=== PATIENT | female | born 1985 | race African-American/Black ===

== ENCOUNTER 2017-04-14 10:55 | Emergency (ER) | payer OTHER ==
[~2017-04-14] VITALS: Ht 154.9 cm; Wt 69.8 kg
[~2017-04-14 10:55] MED LIST: MOBIC15 MG PO; TYLENOL325 MG PO
[2017-04-14 12:03] LABS: URINE BILIRUBIN NEGATIVE (Negative); URINE BLOOD NEGATIVE (Negative); URINE CLARITY CLEAR; URINE COLOR YELLOW; URINE GLUCOSE-RANDOM* NEGATIVE (Negative); URINE KETONES NEGATIVE (Negative); URINE LEUKOCYTES NEGATIVE (Negative); URINE NITRITE NEGATIVE (Negative); URINE PROTEIN (DIPSTICK) NEGATIVE (Negative); URINE SPECIFIC GRAVITY >= 1.030 (1.005-1.035); URINE UROBILINOGEN 0.2 E.U./dl (0.2-1.0)
[2017-04-14 12:03] LABS: HEMATOCRIT 38.8 % (37.0-47.0); HEMOGLOBIN 12.7 gm/dL (12.0-15.0); MCH 25.4 pg (26.0-34.0); MCHC 32.7 g/dL (28.0-37.0); MCV 77.5 fL (80.0-100.0); PLATELET COUNT 297 thou/uL (150-400); RBC 5.01 mil/uL (4.20-5.00); RDW 14.9 % (10.5-14.5); WBC 3.8 thou/uL (4.0-11.0)
[2017-04-14 12:12] LABS: ANION GAP 12 mmol/L (7-16); BUN 6 mg/dL (7-18); CALCIUM 9.2 mg/dL (8.5-10.1); CHLORIDE 104 mmol/L (98-107); CO2 23 mmol/L (21-32); CREATININE 0.9 mg/dL (0.6-1.0); GLUCOSE 112 mg/dL (74-106); SODIUM 139 mmol/L (136-145)
[2017-04-14 12:17] LABS: DIRECT BILIRUBIN < 0.1 mg/dL (<0.1-0.3); LIPASE 150 U/L (73-393); SGOT 121 U/L (15-37); SGPT 144 U/L (30-65); TOTAL BILIRUBIN 0.2 mg/dL (<0.1-1.0); TOTAL PROTEIN 8.6 g/dL (6.4-8.2)
[2017-04-14 13:13] LABS: ABSOLUTE NEUTROPHILS 1.8 thou/uL (1.4-8.2)
[2017-04-14] MEDS ORDERED: ONDANSETRON HCL4 M2 PO (13:29)
== END 2017-04-14 13:45 | disposition home or self-care (01) ==
LOC: ER 10:55
PROVIDERS: Nurse Practitioner
DX: R19.7 Diarrhea, unspecified (principal); R11.2 Nausea with vomiting, unspecified

== ENCOUNTER 2017-08-28 15:47 | Emergency (ER) | payer BC ==
[~2017-08-28] VITALS: Ht 154.9 cm; Wt 70.3 kg
[~2017-08-28 15:47] MED LIST changes: +ONDANSETRON HCL4 M2 PO
[2017-08-28 16:16] LABS: ABSOLUTE NEUTROPHILS 3.8 thou/uL (1.4-8.2); BASOPHILS 0.7 % (0.0-2.0); HEMOGLOBIN 11.9 gm/dL (12.0-15.0); MCH 25.4 pg (26.0-34.0); MCV 77.2 fL (80.0-100.0); MONOCYTES 7.1 % (1.0-8.0); PLATELET COUNT 322 thou/uL (150-400); POLYS 46.2 % (36.0-66.0); RBC 4.66 mil/uL (4.20-5.00); RDW 15.7 % (10.5-14.5); WBC 8.1 thou/uL (4.0-11.0)
[2017-08-28 16:23] LABS: CALCIUM 9.1 mg/dL (8.5-10.1)
[2017-08-28 16:29] LABS: ALBUMIN 3.9 g/dL (3.4-5.0); TOTAL BILIRUBIN 0.2 mg/dL (<0.1-1.0); TOTAL PROTEIN 8.2 g/dL (6.4-8.2)
[2017-08-28 16:30] LABS: URINE BILIRUBIN NEGATIVE (Negative); URINE BLOOD NEGATIVE (Negative); URINE CLARITY CLEAR; URINE COLOR YELLOW; URINE GLUCOSE-RANDOM* NEGATIVE (Negative); URINE KETONES NEGATIVE (Negative); URINE LEUKOCYTES-REFLEX NEGATIVE (Negative); URINE NITRITE-REFLEX NEGATIVE (Negative); URINE PROTEIN (DIPSTICK) NEGATIVE (Negative); URINE SPECIFIC GRAVITY >= 1.030 (1.005-1.035); URINE UROBILINOGEN 0.2 E.U./dl (0.2-1.0)
[2017-08-28] MEDS ORDERED: MOBIC7.5 MG PO (18:21)
[2017-08-28] MEDS ORDERED: MIRALAX17 GM PO (18:21)
[2017-08-28] MEDS ORDERED: FLAGYL500 MG PO (18:34)
[2017-08-28 19:05] VITALS: BP 122/74
[2017-08-29 13:10] LABS: NEISSERIA GONORRHEA-PCR Negative (Negative)
== END 2017-08-28 19:06 | disposition home or self-care (01) ==
LOC: ER 15:47
PROVIDERS: Physician Assistant
DX: N76.0 Acute vaginitis (principal); N83.201 Unspecified ovarian cyst, right side; K59.00 Constipation, unspecified

== ENCOUNTER 2017-12-20 21:45 | Emergency (ER) | payer BC ==
[~2017-12-20] VITALS: Ht 154.9 cm; Wt 68.0 kg
[~2017-12-20 21:45] MED LIST changes: +FLAGYL500 MG PO; +MIRALAX17 GM PO; +MOBIC7.5 MG PO
[2017-12-21 00:11] LABS: ABSOLUTE NEUTROPHILS 4.2 thou/uL (1.4-8.2); BASOPHILS 0.7 % (0.0-2.0); HEMATOCRIT 36.8 % (37.0-47.0); HEMOGLOBIN 12.3 gm/dL (12.0-15.0); LYMPHOCYTES 40.7 % (24.0-44.0); MCH 25.4 pg (26.0-34.0); MCHC 33.4 g/dL (28.0-37.0); MCV 76.2 fL (80.0-100.0); MONOCYTES 8.2 % (1.0-8.0); PLATELET COUNT 274 thou/uL (150-400); POLYS 49.4 % (36.0-66.0); RBC 4.83 mil/uL (4.20-5.00); RDW 14.9 % (10.5-14.5); WBC 8.6 thou/uL (4.0-11.0)
[2017-12-21 00:19] LABS: CALCIUM 9.5 mg/dL (8.5-10.1); CREATININE 0.9 mg/dL (0.6-1.0); POTASSIUM 3.6 mmol/L (3.5-5.1)
[2017-12-21] MEDS ORDERED: KEFLEX500 M1 PO (02:16)
[2017-12-21 02:44] VITALS: BP 116/71
== END 2017-12-21 02:50 | disposition home or self-care (01) ==
LOC: ER 21:45
PROVIDERS: Emergency Medicine
DX: N63.0 Unspecified lump in unspecified breast (principal)

== ENCOUNTER → 2018-01-26 | Outpatient (CLI) | payer BC ==
[~2018-01-26] MED LIST changes: +KEFLEX500 M1 PO
== END ==
LOC: ULTRA 01:56
DX: N61.1 Abscess of the breast and nipple (principal); N64.4 Mastodynia

== ENCOUNTER 2019-06-01 08:25 | Emergency (ER) | payer OTHER ==
[~2019-06-01] VITALS: Ht 157.5 cm; Wt 74.8 kg
[2019-06-01 10:08] VITALS: BP 129/87
== END 2019-06-01 10:10 | disposition home or self-care (01) ==
LOC: ER 08:25
DX: J06.9 Acute upper respiratory infection, unspecified (principal)